=== PATIENT | male | born 2000 | race Caucasian/White ===

== ENCOUNTER 2020-01-08 23:07 | Emergency (ER) | payer SELFPAY ==
[~2020-01-08] VITALS: Ht 175.3 cm; Wt 73.0 kg
[2020-01-09 00:25] VITALS: BP 125/74
== END 2020-01-09 00:35 | disposition home or self-care (01) ==
LOC: ER 23:07
DX: J45.901 Unspecified asthma with (acute) exacerbation (principal)
CPT/HCPCS: 99283